=== PATIENT | male | born 1980 | race African-American/Black ===

== ENCOUNTER 2017-02-09 03:40 | Emergency (ER) | payer SELFPAY ==
[~2017-02-09] VITALS: Ht 185.4 cm; Wt 111.0 kg
[2017-02-09 11:11] VITALS: BP 126/79
== END 2017-02-09 11:13 | disposition home or self-care (01) ==
LOC: ER 03:40
DX: G93.40 Encephalopathy, unspecified (principal); J45.909 Unspecified asthma, uncomplicated; F12.90 Cannabis use, unspecified, uncomplicated
CPT/HCPCS: 82962; 99283

== ENCOUNTER 2017-02-09 13:27 | Emergency (ER) | payer SELFPAY ==
[~2017-02-09] VITALS: Ht 180.3 cm; Wt 95.0 kg
[2017-02-09 15:40] LABS: CLARITY URINE CLEAR (CLEAR); COLOR URINE DARK YELLOW (YELLOW); KETONES URINE 1+ (NEGATIVE); LEUKOCYTE ESTERASE URINE 1+ (NEGATIVE); NITRITE URINE NEGATIVE (NEGATIVE); OCCULT BLOOD URINE NEGATIVE (NEGATIVE); PH URINE 6.5 (4.5-8.0); PROTEIN URINE 1+ (NEGATIVE); SPECIFIC GRAVITY URINE 1.029 (1.005-1.030)
[2017-02-09 15:52] LABS: *AMPHETAMINES SCREEN URINE NEGATIVE (NEGATIVE); *BARBITURATES SCREEN URINE NEGATIVE (NEGATIVE); *BENZODIAZEPINES SCREEN URINE NEGATIVE (NEGATIVE); *COCAINE SCREEN URINE NEGATIVE (NEGATIVE); CANNABINOID URINE SCREEN NEGATIVE (NEGATIVE); METHADONE URINE SCREEN NEGATIVE (NEGATIVE); OPIATES URINE SCREEN NEGATIVE (NEGATIVE); PHENCYCLIDINE URINE SCREEN NEGATIVE (NEGATIVE)
[2017-02-09] MEDS ORDERED: LIDOCAINE HCL 1% 20ML VIAL (Pyxis) INJ INFIL ONE (16:30)
[2017-02-09] MEDS ORDERED: AZITHROMYCIN 500 MG TABLET PO ONE (16:30)
[2017-02-09] MEDS ORDERED: CEFTRIAXONE SODIUM 250 MG/VIAL IM ONE (16:30)
[2017-02-09 16:38] VITALS: BP 132/81
== END 2017-02-09 17:18 | disposition home or self-care (01) ==
LOC: ER 13:31
DX: R44.0 Auditory hallucinations (principal); N39.0 Urinary tract infection, site not specified; J45.909 Unspecified asthma, uncomplicated; F12.10 Cannabis abuse, uncomplicated
CPT/HCPCS: 36415; 80305; 80329; 81001; 99284; G0482

== ENCOUNTER 2019-01-31 20:11 | Emergency (ER) | payer MEDICARE, MEDICAID ==
[~2019-01-31] VITALS: Ht 170.2 cm; Wt 102.0 kg
[2019-02-01] MEDS ORDERED: RISPERIDONE 1MG TABLET PO SCH (00:15)
[2019-02-01 07:25] VITALS: BP 116/71
== END 2019-02-01 13:56 | disposition home or self-care (01) ==
LOC: ER 21:30
DX: R44.0 Auditory hallucinations (principal); R45.851 Suicidal ideations; E11.9 Type 2 diabetes mellitus without complications; F12.10 Cannabis abuse, uncomplicated
CPT/HCPCS: 99284